=== PATIENT | male | born 1965 | race Caucasian/White ===

== ENCOUNTER 2019-08-21 10:50 | Observation (INO) ==
[2019-08-21] MEDS ORDERED: PANTOPRAZOLE IV 40 MG VIAL IVP ONE (11:11)
[2019-08-21 11:33] LABS: BASOPHILS # (AUTO) 0.06 10*3/UL; BASOPHILS % (AUTO) 0.8 % (0-1); EOSINOPHILS # (AUTO) 0.16 10*3/UL; EOSINOPHILS % (AUTO) 2.2 % (0-8); Hematocrit [HCT] 46.6 % (42.0-52.0); Hemoglobin [HGB] 15.9 g/dL (14.0-18.0); LYMPHOCYTES # (AUTO) 1.73 10*3/uL; MEAN CORPUSCULAR HGB CONC 34.1 g/dL (33-37); MEAN CORPUSCULAR VOLUME 87.3 FL (80-90); MEAN PLATELET VOLUME 9.9 FL (7.4-12.2); MONOCYTES % (AUTO) 6.8 % (5-15); NEUTROPHILS # (AUTO) 4.83 10*3/UL; NEUTROPHILS % (AUTO) 66.1 % (50-80); RED BLOOD COUNT 5.34 10^6/uL (4.70-6.10)
[2019-08-21 11:36] LABS: PLATELET MORPHOLOGY COMMENT NORMAL MORPHOLOGY (NORM); RBC MORPHOLOGY COMMENT NORMAL MORPHOLOGY (NORM); WBC MORPHOLOGY COMMENT NORMAL MORPHOLOGY (NORM)
[2019-08-21 11:42] LABS: BLOOD UREA NITROGEN 12 mg/dL (7-22); BUN/CREATININE RATIO 17.14 (6-20); SERUM ALBUMIN 4.2 g/dL (3.5-4.8)
[2019-08-21] MEDS ORDERED: CALCIUM CARBONATE 500 MG (TUMS) CHEWABLE TABLET PO PRN (13:10)
[2019-08-21] MEDS ORDERED: ACETAMINOPHEN 325 MG TABLET PO PRN (13:10)
[2019-08-21] MEDS ORDERED: ONDANSETRON 4 MG/2 ML VIAL IVP PRN (13:10)
[2019-08-21] MEDS ORDERED: LIDOCAINE W/ SODIUM BICARB 0.5 ML SYR SUBD PRN (13:10)
[2019-08-21] MEDS ORDERED: DOCUSATE 100 MG CAPSULE PO PRN (13:10)
[2019-08-21] MEDS ORDERED: POTASSIUM CHLORIDE 20 MEQ TAB PO ONE (14:53)
[2019-08-21 17:21] LABS: BASOPHILS # (AUTO) 0.07 10*3/UL; BASOPHILS % (AUTO) 0.8 % (0-1); EOSINOPHILS # (AUTO) 0.28 10*3/UL; Hematocrit [HCT] 45.1 % (42.0-52.0); Hemoglobin [HGB] 15.6 g/dL (14.0-18.0); LYMPHOCYTES # (AUTO) 2.12 10*3/uL; MEAN CORPUSCULAR HGB CONC 34.6 g/dL (33-37); MEAN CORPUSCULAR VOLUME 87.4 FL (80-90); MONOCYTES % (AUTO) 6.5 % (5-15); NEUTROPHILS # (AUTO) 6.11 10*3/UL; NEUTROPHILS % (AUTO) 66.4 % (50-80); RED BLOOD COUNT 5.16 10^6/uL (4.70-6.10)
[2019-08-21 17:25] LABS: PLATELET MORPHOLOGY COMMENT NORMAL MORPHOLOGY (NORM); RBC MORPHOLOGY COMMENT NORMAL MORPHOLOGY (NORM); WBC MORPHOLOGY COMMENT NORMAL MORPHOLOGY (NORM)
[2019-08-22 04:43] LABS: BASOPHILS # (AUTO) 0.06 10*3/UL; BASOPHILS % (AUTO) 0.7 % (0-1); EOSINOPHILS # (AUTO) 0.36 10*3/UL; EOSINOPHILS % (AUTO) 4.3 % (0-8); Hematocrit [HCT] 46.8 % (42.0-52.0); Hemoglobin [HGB] 15.9 g/dL (14.0-18.0); LYMPHOCYTES # (AUTO) 2.44 10*3/uL; MEAN CORPUSCULAR VOLUME 88.1 FL (80-90); MEAN PLATELET VOLUME 10.7 FL (7.4-12.2); MONOCYTES # (AUTO) 0.72 10*3/UL (0.3-0.8); MONOCYTES % (AUTO) 8.5 % (5-15); NEUTROPHILS # (AUTO) 4.78 10*3/UL; NEUTROPHILS % (AUTO) 56.8 % (50-80); RED BLOOD COUNT 5.31 10^6/uL (4.70-6.10)
[2019-08-22 04:45] LABS: PLATELET MORPHOLOGY COMMENT NORMAL MORPHOLOGY (NORM); RBC MORPHOLOGY COMMENT NORMAL MORPHOLOGY (NORM); WBC MORPHOLOGY COMMENT NORMAL MORPHOLOGY (NORM)
[2019-08-22 06:26] VITALS: O2SAT 93
[2019-08-22 06:27] VITALS: BP 119/71; TEMP 97.2
[2019-08-22 08:32] VITALS: RESP 16
[2019-08-22] MEDS ORDERED: PANTOPRAZOLE 40 MG TABLET PO ONE (08:49)
== END 2019-08-22 09:28 | disposition home or self-care (01) ==
LOC: ER 10:50 → MED/SURG 10:50
PROVIDERS: ADMIT Family Medicine; ATTEND Family Medicine